=== PATIENT | female | born 1995 | race Caucasian/White ===

== ENCOUNTER 2017-07-21 05:30 | Inpatient (IN) ==
[2017-07-21] MEDS ORDERED: PEPCID IV PRN (05:34)
[2017-07-21] MEDS ORDERED: ZOFRAN IV PRN (05:34)
[2017-07-21] MEDS ORDERED: PEPCID PO ONE (05:34)
[2017-07-21] MEDS ORDERED: REGLAN PO ONE (05:34)
[2017-07-21] MEDS ORDERED: PEPCID PO PRN (05:34)
[2017-07-21] MEDS ORDERED: KEFZOL 1 GM/D5W 1 GM/50 ML IVPB IV PRN (05:34)
[2017-07-21] MEDS ORDERED: STADOL IV PRN (05:34)
[2017-07-21] MEDS ORDERED: TYLENOL PO PRN (05:34)
[2017-07-21] MEDS ORDERED: SODIUM CHLORIDE 0.9% INJ SCH (05:45)
[2017-07-21] MEDS: LR 1,000 ML IV SCH ×2 (06:25→07:38)
[2017-07-21 06:30] LABS: URINE SOURCE VOIDED
[2017-07-21 06:30] LABS: MANUAL DIFF NEEDED? NO
[2017-07-21 06:37] LABS: BASO% 0.3 % (0.0-0.8); EOS# 0.19 X1000 (0.0-0.7); EOS% 2.6 % (0.0-10.0); HEMATOCRIT 33.4 % (37.0-47.0); HEMOGLOBIN 10.9 g/dL (12.0-16.0); IMM GRAN# 0.03 X1000 (0.0-0.04); IMM GRAN% 0.4 % (0.0-0.5); LYMPH# 1.42 X1000 (1.2-3.4); LYMPH% 19.1 % (20.5-51.1); MCH 30.5 PG (27-31); MCHC 32.6 g/dL (33-37); MCV 93.6 FL (81-99); MONO# 0.59 X1000 (0.11-0.59); MPV 12.2 FL (7.4-10.4); NEUT% 69.6 % (42.2-75.2); PLT 178 X1000 (130-400); RBC 3.57 XMIL (4.2-5.4)
[2017-07-21 06:38] LABS: BILIRUBIN URINE NEGATIVE (NEGATIVE); BLOOD URINE NEGATIVE (NEGATIVE); CLARITY CLEAR (CLEAR); COLOR YELLOW; GLUCOSE URINE NEGATIVE (NEGATIVE); LEUKOCYTES URINE 2+ (NEGATIVE); NITRITE URINE NEGATIVE (NEGATIVE); PROTEIN URINE NEGATIVE (NEGATIVE); SP GRAVITY URINE 1.005; UROBILINOGEN URINE NORMAL
[2017-07-21] MEDS ORDERED: PITOCIN 30 UNITS/LR 30 UNITS/500 ML IV.SOLN IV SCH (07:00)
[2017-07-21 07:12] LABS: UR AMPHETAMINES QUAL NONE DETECTED (NONE DETECT); UR BARBITUATES QUAL NONE DETECTED (NONE DETECT); UR BENZODIAZEPIN QUAL NONE DETECTED (NONE DETECT); UR CANNABINOIDS QUAL NONE DETECTED (NONE DETECT); UR COCAINE QUAL NONE DETECTED (NONE DETECT); UR MDMA QUAL NONE DETECTED (NONE DETECT); UR METHADONE QUAL NONE DETECTED (NONE DETECT); UR METHAMPHETAMINE QUAL NONE DETECTED (NONE DETECT); UR OPIATES QUAL NONE DETECTED (NONE DETECT); UR OXYCODONE QUAL NONE DETECTED (NONE DETECT); UR PCP QUAL NONE DETECTED (NONE DETECT); UR TCA QUAL NONE DETECTED (NONE DETECT)
[2017-07-21] MEDS ORDERED: FENTANYL-BUPIV-NS 2 MCG-0.1% 200 ML EPIDURAL PRN (07:12)
[2017-07-21] MEDS ORDERED: XYLOCAINE-MPF 1% INJ ONE ×2 (07:15→11:21)
[2017-07-21] MEDS ORDERED: MINERAL OIL ONE (11:20)
[2017-07-21] MEDS ORDERED: XYLOCAINE-MPF 2% ONE (11:21)
[2017-07-21] MEDS ORDERED: HYDROXYZINE PO PRN (12:08)
[2017-07-21] MEDS ORDERED: NORCO-5 PO PRN (12:08)
[2017-07-21] MEDS ORDERED: XYLOCAINE-MPF 1% INJ PRN (12:08)
[2017-07-21] MEDS ORDERED: BOOSTRIX VACCINE IM ONE (12:08)
[2017-07-21] MEDS ORDERED: PITOCIN IM PRN (12:08)
[2017-07-21] MEDS ORDERED: PERCOCET-5 PO PRN (12:08)
[2017-07-21] MEDS ORDERED: M-M-R II VACCINE SUBQ ONE (12:08)
[2017-07-21] MEDS ORDERED: PITOCIN 20 UNITS/LR 20 UNITS/1,000 ML IV.SOLN IV SCH (12:08)
[2017-07-21] MEDS ORDERED: PERI MEDS (DERMOPLAST/NUPERCAINAL/TUCKS) MISC PRN (12:08)
[2017-07-21] MEDS ORDERED: CYTOTEC PO PRN (12:08)
[2017-07-21] MEDS ORDERED: HYDROXYZINE IM PRN (12:08)
[2017-07-21] MEDS ORDERED: BENADRYL IV PRN (12:08)
[2017-07-21] MEDS ORDERED: AMBIEN PO PRN (12:08)
[2017-07-21] MEDS ORDERED: BENADRYL PO PRN (12:08)
[2017-07-21] MEDS ORDERED: PITOCIN 30 UNITS/LR 30 UNITS/500 ML IV.SOLN IV ONE (12:08)
[2017-07-21] MEDS: NORCO-10 PO PRN ×2 (13:26→20:14)
[2017-07-21] MEDS: MOTRIN PO PRN (13:26)
[2017-07-21] MEDS: PERICOLACE PO SCH (21:09)
[2017-07-22] MEDS: NORCO-10 PO PRN ×2 (02:18→12:06)
[2017-07-22] MEDS: MOTRIN PO PRN ×2 (02:18→10:37)
[2017-07-22 05:57] LABS: HEMATOCRIT 28.3 % (37.0-47.0); MCH 30.3 PG (27-31); MCHC 31.8 g/dL (33-37); MCV 95.3 FL (81-99); MPV 12.4 FL (7.4-10.4); RBC 2.97 XMIL (4.2-5.4)
[2017-07-22] MEDS: HEMOCYTE PLUS CAPSULE PO SCH (10:37)
[2017-07-22] MEDS: PRECARE PO SCH (10:38)
[2017-07-22] MEDS: CELEXA PO SCH (10:38)
[2017-07-22] MEDS: PERCOCET-10 PO PRN (16:32)
[2017-07-22] MEDS: PERICOLACE PO SCH (20:27)
[2017-07-23 00:38] VITALS: BP 95/50
[2017-07-23] MEDS: MOTRIN PO PRN (01:28)
[2017-07-23] MEDS: HEMOCYTE PLUS CAPSULE PO SCH (08:48)
[2017-07-23] MEDS: PERCOCET-10 PO PRN (08:48)
[2017-07-23] MEDS: PRECARE PO SCH (08:48)
[2017-07-23] MEDS: CELEXA PO SCH (08:49)
== END 2017-07-23 14:25 | disposition home or self-care (01) ==
LOC: P.LD 05:30 → P.WC 14:40
PROVIDERS: ADMIT Obstetrics & Gynecology; ATTEND Obstetrics & Gynecology